=== PATIENT | female | born 1930 | race Caucasian/White ===

== ENCOUNTER → 2016-11-23 10:14 | Outpatient (CLI) | payer MEDICARE, BC, MEDICAID ==
[2016-07-13 09:00] VITALS: BMI 28.0
[~2016-11-23 10:14] MED LIST: ASPIRIN 81 MG E81 MG PO; CALTRATE-600600 MG PO; CARDIZEM CD180 MG PO; CENTRUM SILVER1 TA2 PO; COREG 3.1253.125 MG PO; DETROL LA2 MG PO; FUROSEMIDE20 MG PO; ISOSORBIDE DINI30 MG PO; MAGNESIUM WITH ZINC PO; MELATONIN 3 MG1 TAB PO; MYLANTA LIQUID355 ML PO; NITROSTAT0.4 MG SL; NORVASC10 MG PO; OYST-CAL-5001 TAB PO; PLAVIX75 MG PO; POTASSIUM CHLO10 ME1 PO; SYNTHROID50 MCG PO; TRAVATAN Z2.5 ML EACH EYE; ULTRAM50 MG PO; VITAMIN B-121000 MCG PO; VOLTAREN100 GM TOPICAL; ZANTAC150 MG PO
== END | disposition home or self-care (01) ==
LOC: D.RAD 10:14
DX: R10.84 Generalized abdominal pain (principal)

== ENCOUNTER 2017-03-03 15:42 | Emergency (ER) | payer MEDICARE, BC, MEDICAID ==
[2016-07-13 09:00] VITALS: BMI 28.0
[2017-03-03 16:34] LABS: BASOPHILS 0.2 % (0-2); EOSINOPHILS 0.8 % (0-7); HEMATOCRIT 38.9 % (36.0-48.0); HEMOGLOBIN 12.9 g/dL (12-16); IMMATURE GRANULOCYTES 0.1 % (0-5); LYMPHOCYTES 25.1 % (15-50); MCH 30.4 pg (26.0-34.0); MCHC 33.2 g/dL (31.0-37.0); MCV 91.7 fL (80.0-100.0); MEAN PLATELET VOLUME 9.2 fL (7.4-10.4); MONOCYTES 7.4 % (2-11); NEUTROPHILS 66.4 % (40-80); PLATELET COUNT 242 10x3/uL (130-400); RBC 4.24 10x6/uL (4.00-5.40); RDW 13.4 % (11.5-14.5); WBC 8.5 10x3/uL (4.8-10.8)
[2017-03-03 16:57] LABS: ALBUMIN 3.6 g/dL (3.4-5.0); ALKALINE PHOSPHATASE 80 U/L (46-116); ALT (SGPT) 21 U/L (10-68); BILIRUBIN - TOTAL 0.41 mg/dL (0.2-1.3); CALC OSMOLALITY 282 mosm/kg (275-300); CALCIUM 9.3 mg/dL (8.5-10.1); CHLORIDE - SERUM 102 mmol/L (98-107); CREATININE - SERUM 0.8 mg/dL (0.6-1.3); GLUCOSE 109 mg/dL (74-106); POTASSIUM - SERUM 3.6 mmol/L (3.5-5.1); PROTEIN - SERUM 7.2 g/dL (6.4-8.2); SODIUM 141 mmol/L (136-145); UREA NITROGEN 15 mg/dL (7-18); eGFR NON AFRICAN AMERICAN 72 mL/min (90-120)
[2017-03-03 17:08] LABS: CHOL - HDL RATIO 1.9 ratio (2.3-4.1); CHOLESTEROL, TOTAL 141 mg/dL (0-200); CKMB 0.5 U/L (0.0-3.6); CREATINE KINASE 46 UL (21-215); HDL CHOLESTEROL 74 mg/dL (32-96); LDL CHOLESTEROL 52 mg/dL (0-100); LDL-HDL RATIO 0.7 ratio (1.5-3.5); TRIGLYCERIDE 79 mg/dL (30-200)
[2017-03-03 17:09] LABS: TROPONIN-I < 0.017 ng/mL (0.000-0.060)
== END 2017-03-03 15:43 | disposition home or self-care (01) ==
LOC: D.ER 15:42
PROVIDERS: Family Medicine
DX: R07.89 Other chest pain (principal); K21.9 Gastro-esophageal reflux disease without esophagitis; K29.70 Gastritis, unspecified, without bleeding; I10 Essential (primary) hypertension

== ENCOUNTER → 2017-05-17 13:36 | Outpatient (CLI) | payer MEDICARE, BC, MEDICAID ==
[2016-07-13 09:00] VITALS: BMI 28.0
== END | disposition home or self-care (01) ==
LOC: D.US 13:30
DX: M79.604 Pain in right leg (principal); R60.0 Localized edema

== ENCOUNTER 2017-10-27 13:38 | Emergency (ER) | payer MEDICARE, BC, MEDICAID ==
[2016-07-13 09:00] VITALS: BMI 28.0
[2017-10-27 14:59] LABS: BASOPHILS 0.6 % (0-2); EOSINOPHILS 1.5 % (0-7); HEMATOCRIT 38.1 % (36.0-48.0); HEMOGLOBIN 12.8 g/dL (12-16); IMMATURE GRANULOCYTES 0.2 % (0-5); MCHC 33.6 g/dL (31.0-37.0); MCV 89.2 fL (80.0-100.0); MEAN PLATELET VOLUME 9.1 fL (7.4-10.4); MONOCYTES 7.3 % (2-11); NEUTROPHILS 53.4 % (40-80); PLATELET COUNT 235 10x3/uL (130-400); RBC 4.27 10x6/uL (4.00-5.40); RDW 13.3 % (11.5-14.5); WBC 6.2 10x3/uL (4.8-10.8)
[2017-10-27 15:18] LABS: APPEARANCE CLEAR (CLEAR); BILIRUBIN NEGATIVE (NEGATIVE); COLOR STRAW (YELLOW); GLUCOSE NEGATIVE (NEGATIVE); KETONE NEGATIVE (NEGATIVE); NITRITE NEGATIVE (NEGATIVE); PROTEIN NEGATIVE (NEGATIVE); SPECIFIC GRAVITY 1.015 (1.005-1.020); UROBILINOGEN NORMAL (NORMAL)
[2017-10-27 15:33] LABS: ALBUMIN 3.6 g/dL (3.4-5.0); ALKALINE PHOSPHATASE 57 U/L (46-116); ALT (SGPT) 18 U/L (10-68); BILIRUBIN - TOTAL 0.35 mg/dL (0.2-1.3); CALC OSMOLALITY 269 mosm/kg (275-300); CALCIUM 8.9 mg/dL (8.5-10.1); CARBON DIOXIDE 29.5 mmol/L (21.0-32.0); CHLORIDE - SERUM 102 mmol/L (98-107); CREATININE - SERUM 0.9 mg/dL (0.6-1.3); GLUCOSE 107 mg/dL (74-106); PROTEIN - SERUM 6.9 g/dL (6.4-8.2); SODIUM 135 mmol/L (136-145); UREA NITROGEN 12 mg/dL (7-18); eGFR NON AFRICAN AMERICAN 62 mL/min (90-120)
[2017-10-27 15:34] LABS: POTASSIUM - SERUM 2.9 mmol/L (3.5-5.1)
[2017-10-27 16:01] LABS: CHOL - HDL RATIO 2.6 ratio (2.3-4.1); CHOLESTEROL, TOTAL 135 mg/dL (0-200); CKMB 0.6 U/L (0.0-3.6); CREATINE KINASE 58 UL (21-215); HDL CHOLESTEROL 52 mg/dL (32-96); LDL CHOLESTEROL 38 mg/dL (0-100); LDL-HDL RATIO 0.7 ratio (1.5-3.5); TRIGLYCERIDE 229 mg/dL (30-200)
[2017-10-27 16:03] LABS: TROPONIN-I < 0.017 ng/mL (0.000-0.060)
== END 2017-10-27 20:04 | disposition home or self-care (01) ==
LOC: D.ER 13:38
PROVIDERS: Emergency Medicine; Nurse Practitioner Family
DX: M79.602 Pain in left arm (principal); E87.6 Hypokalemia; I45.10 Unspecified right bundle-branch block; I10 Essential (primary) hypertension; K92.1 Melena

== ENCOUNTER → 2018-03-05 14:58 | Outpatient (CLI) | payer MEDICARE ==
[2016-07-13 09:00] VITALS: BMI 28.0
== END | disposition home or self-care (01) ==
LOC: D.CT 14:58
DX: R07.89 Other chest pain (principal)

== ENCOUNTER 2018-04-03 13:07 | Emergency (ER) | payer MEDICARE ==
[~2018-04-03] VITALS: Ht 157.5 cm; Wt 69.9 kg
[2018-04-03 13:09] VITALS: Ht 157.5 cm; Wt 69.9 kg
[2018-04-03 14:00] LABS: APTT 26.4 SECONDS (22.8-39.4); INR 1.01 (0.85-1.17); PROTIME 12.9 SECONDS (11.6-15.0)
[2018-04-03 14:05] LABS: APPEARANCE HAZY (CLEAR); BILIRUBIN NEGATIVE (NEGATIVE); COLOR STRAW (YELLOW); EPITHELIAL CELLS OCC /hpf (0-5); GLUCOSE NEGATIVE (NEGATIVE); KETONE NEGATIVE (NEGATIVE); NITRITE NEGATIVE (NEGATIVE); PROTEIN NEGATIVE (NEGATIVE); UROBILINOGEN NORMAL (NORMAL); WHITE CELLS - URINE OCC /hpf (0-5)
[2018-04-03 14:06] LABS: BACTERIA MANY /hpf (NONE SEEN); MUCUS <1+ /lpf (NONE SEEN)
[2018-04-03 14:07] LABS: ALBUMIN 3.5 g/dL (3.4-5.0); ALKALINE PHOSPHATASE 82 U/L (46-116); ALT (SGPT) 16 U/L (10-68); BILIRUBIN - TOTAL 0.33 mg/dL (0.2-1.3); CALC OSMOLALITY 284 mosm/kg (275-300); CALCIUM 8.3 mg/dL (8.5-10.1); CARBON DIOXIDE 29.6 mmol/L (21.0-32.0); CHLORIDE - SERUM 104 mmol/L (98-107); CREATININE - SERUM 0.8 mg/dL (0.6-1.3); GLUCOSE 108 mg/dL (74-106); POTASSIUM - SERUM 3.1 mmol/L (3.5-5.1); SODIUM 142 mmol/L (136-145); UREA NITROGEN 16 mg/dL (7-18); eGFR NON AFRICAN AMERICAN 72 mL/min (90-120)
[2018-04-03 14:10] LABS: TROPONIN-I < 0.017 ng/mL (0.000-0.060)
[2018-04-03 14:58] LABS: BASOPHILS 0.4 % (0-2); EOSINOPHILS 1.1 % (0-7); HEMATOCRIT 37.3 % (36.0-48.0); HEMOGLOBIN 12.3 g/dL (12-16); IMMATURE GRANULOCYTES 0.2 % (0-5); LYMPHOCYTES 36.2 % (15-50); MCH 29.9 pg (26.0-34.0); MCV 90.5 fL (80.0-100.0); MEAN PLATELET VOLUME 8.9 fL (7.4-10.4); MONOCYTES 9.9 % (2-11); NEUTROPHILS 52.2 % (40-80); PLATELET COUNT 272 10x3/uL (130-400); RBC 4.12 10x6/uL (4.00-5.40); WBC 5.7 10x3/uL (4.8-10.8)
[2018-04-03 16:35] VITALS: BP 122/53
== END 2018-04-03 16:35 | disposition home or self-care (01) ==
LOC: D.ER 13:07
PROVIDERS: Emergency Medicine
DX: R00.2 Palpitations (principal); R07.9 Chest pain, unspecified; Z86.79 Personal history of other diseases of the circulatory system; Z86.718 Personal history of other venous thrombosis and embolism; E87.6 Hypokalemia; K21.9 Gastro-esophageal reflux disease without esophagitis